=== PATIENT | female | born 1995 | race Caucasian/White ===

== ENCOUNTER → 2017-04-21 | Outpatient (CLI) | payer BC ==
[~2017-04-21] MED LIST: IBUP-1050 PO; NORE-24 PO; REVIEWED
--- NOTE | 2017-04-21 16:16 | MAMMOGRAPHY REPORT ---
ULTRASOUND OF RIGHT BREAST: 04/21/2017 CLINICAL HISTORY: 21-year-old woman presents with a history of right breast pain over the past month. It began a sharp burning pain became constant for 3-4 days but has subsided a little bit just prior to this appointment. She also possibly feels a small lump near the area of pain. No skin changes o r nipple discharge. No family history of breast cancer. COMPARISON: No prior exams were available for comparison. FINDINGS: Real-time high-resolution grayscale ultrasound was performed throughout the area of pain p ointed out by the patient (8:00 through 10:00 axes of the right breast from the periareolar region th rough 6 cm from the nipple). The patient also reported a possible small lump in the 10:00 axis when she pinched the area between her thumb and fingers. I was unable to palpate a lump. Throughout the area of pain, there is no evidence of a suspicious solid or cystic mass. Sonographically normal theresa st tissue is seen. IMPRESSION: ACR BI-RADS CATEGORY 1: NEGATIVE There is no sonographic evidence of malignancy, or other suspicious abnormality to explain the right lateral mastalgia and palpable lump. Therefore, clinical follow-up is recommended, as biopsy of a cl inically suspicious mass should not be precluded by negative imaging. These results and recommendations were discussed with the patient at the time of the exam. Leidy Coe M.D. ay/:04/21/2017 12:37:36 Informatics Physician: Cheryl PALMER)[place]), [facility] letter sent: Normal 1/2 BI-RADS Code: ACR BI-RADS Category 1: Negative
== END | disposition home or self-care (01) ==
LOC: C.MAMM 10:35
PROVIDERS: ATTEND Physician Assistant
DX: N63 Unspecified lump in breast (principal)

== ENCOUNTER 2018-02-13 19:05 | Emergency (ER) | payer BC, OTHER ==
[~2018-02-13] VITALS: Ht 162.6 cm; Wt 96.2 kg
[~2018-02-13 19:05] MED LIST changes: +NORE-104 PO; -NORE-24 PO
[2018-02-13 19:08] VITALS: TEMP 36.8; Ht 162.6 cm; Wt 96.2 kg
[2018-02-13] MEDS ORDERED: KETOROLAC TROMETHAMINE 30 MG/ML VIAL IV STA (19:20)
[2018-02-13] MEDS ORDERED: ONDANSETRON INJ 2 MG/ML 2 ML VIAL IV STA (19:20)
--- NOTE | 2018-02-13 19:23 | EMERGENCY ROOM VISIT NOTE ---
History Report prepared by Jena: Deonte Li Under the Supervision of: Dr. Curt Christiansen M.D. First contact with patient: 19:11 Chief Complaint: ABDOMINAL PAIN Stated Complaint: VOMITING,R UPPER QUADRANT PAIN INTO BACK History of Present Illness The patient is a 22 year old female who presents to the Emergency Room with complaints of constant abdominal pain beginning today. The patient states that she initially developed nausea and abdominal pain today and has been dry heaving. She notes that she then started vomiting 4 times about 3 hours ago and noticed that there may have dark colored vomit. She reports that her abdominal pain radiates into her back. No hematemesis, coffee-ground emesis, pain with urination, vaginal discharge/bleeding, melena, and blood in her stool. The patient states that there was a little bit of blood when she last went to the bathroom, but notes that she just had her period. She reports that there is no chance that she is . The family member and the patient state they are concerned that the patient might have gallstones as her brother, mother, and father have all had to have their gallbladder removed. Source of History: patient Onset: today Position: abdomen Timing: constant Associated Symptoms: + SOB, + nausea, + vomiting, + back pain Note: The patient states that there might have been dark red coloring in her vomiting. She denies any pain with urination, vaginal discharge/bleeding, and blood in her stool. Review of Systems See HPI for pertinent positives and negatives. A total of ten systems were reviewed and were otherwise negative. Past Medical & Surgical Medical Problems: (1) No chronic problems Family History Cholecystectomy Social History Smoking Status: Never Smoker Marital Status: Housing Status: lives with family Occupation Status: employed Current/Historical Medications Scheduled Ethinyl Estradiol/Norethindr (Microgestin 1.5MG/30MG), 1 TAB PO HS Magnesium (Magnesium), 1 TAB PO HS Pantoprazole (Protonix), 20 MG PO HS Riboflavin (Riboflavin), 1 TAB PO HS Scheduled PRN Ibuprofen (Advil), 200-800 MG PO DIRECTED PRN for Pain Ondansetron Hcl (Zofran), 4 MG PO Q8H PRN for Nausea Allergies Coded Allergies: Venlafaxine (Verified Allergy, Severe, "STROKE-LIKE SYMPTOMS,NUMBNESS ON HALF OF BODY THEN FAINTED", 02/13/18) Adhesives (Verified Allergy, Intermediate, RASH, REDNESS, IRRITATED SKIN, 02/13/18) Latex (Verified Adverse Reaction, Intermediate, ITCHY, REDDENED IRRITATED SKIN, 02/13/18) Physical Exam Vital Signs Date Time Temp Pulse Resp B/P (MAP) Pulse Ox O2 Delivery O2 Flow Rate FiO2 02/13/18 21:06 106 16 123/87 96 Room Air 02/13/18 19:08 36.8 118 20 159/100 99 Room Air Physical Exam Physical Exam GENERAL: She is oriented to person, place, and time. She appears well- developed and well-nourished. She does not appear distressed. HENT: Exam performed. Head: Normocephalic and atraumatic. Right Ear: External ear normal. No mastoid tenderness. Left Ear: External ear normal. No mastoid tenderness. Mouth/Throat: The oropharynx is clear and moist. No trismus in the jaw. No dental abscesses or uvula swelling. No oropharyngeal exudate or tonsillar abscesses. EYES: Conjunctivae and EOM are normal. Pupils are equal, round, and reactive to light. Right eye exhibits no discharge. Left eye exhibits no discharge. No scleral icterus. NECK: Normal range of motion. Neck supple. No JVD present. No spinous process tenderness present. No carotid bruit present. No rigidity. No tracheal deviation and normal range of motion present. No Brudzinski's sign and no Kernig 's sign noted. CV: Normal rate, regular rhythm, normal heart sounds and intact distal pulses. There is no peripheral edema. Palpable radial pulses bue. PULM/CHEST: Effort normal and breath sounds normal. No respiratory distress. No stridor. She has no wheezes. She has no rales. Chest Wall: She exhibits no tenderness. ABD: The abdomen is soft. Bowel sounds are normal. She has no distension. No mass is present. There is no rebound, no guarding, no Brown's sign and no tenderness at McBurney's point. Rovsig negative. Pain to palpation of the RUQ and epigastric area. MUSC/SKEL: Normal range of motion. There is no peripheral edema, tenderness or deformity. LYMPH: No cervical adenopathy. NEURO: She is alert and oriented to person, place, and time. She has normal strength. No cranial nerve deficit or sensory deficit. Coordination and gait normal. GCS eye subscore is 4. GCS verbal subscore is 5. GCS motor subscore is 6. Cerebellar tests wnl. SKIN: Skin is warm and dry. She is not diaphoretic. PSYCH: She has a normal mood and affect. Her behavior is normal. Judgment and thought content normal. Medical Decision & Procedures ER Provider Diagnostic Interpretation: Radiology results as stated below per my review and radiologist interpretation: ULTRASOUND RIGHT UPPER QUADRANT ABDOMEN FINDINGS: Liver: The liver is top normal in size and demonstrates heterogeneously increased echotexture consistent with hepatic steatosis. There is no intrahepatic biliary ductal dilatation. The main portal vein is patent. Gallbladder: The gallbladder is normal in appearance. No gallstones are identified. There is no gallbladder wall thickening or pericholecystic fluid. A sonographic Brown's sign is reportedly absent. The common bile duct measures up to 0.3 cm in diameter. Pancreas: Visualized portions of the pancreatic head and body are normal in appearance. The splenic vein is patent. Right kidney: Survey images of the right kidney demonstrate normal size and echotexture. There is no hydronephrosis. Ascites: None. IMPRESSION: 1. No acute sonographic abnormality is identified in the right upper quadrant. No gallstones are identified. 2. Hepatic steatosis. Electronically signed by: Tesfaye Bishop M.D. 02/13/2018 8:46 PM PA CHEST WITH ABDOMINAL SERIES FINDINGS: A PA chest radiograph is compared to study dated 11/03/2012. The cardiomediastinal silhouette is unremarkable. The lungs and pleural spaces are clear. No pneumothorax is seen. The bony thorax is grossly intact. Supine and erect abdominal radiographs are compared to study dated 09/12/2014. There is a nonobstructed abdominal bowel gas pattern. No evidence of intraperitoneal free air is seen. Mild colonic fecal retention is noted. There are no abnormal abdominal calcifications. A tiny phlebolith is noted in the right hemipelvis. The lumbosacral spine and bony pelvis appear intact. IMPRESSION: 1. No active disease in the chest. 2. Nonobstructed abdominal bowel gas pattern. Electronically signed by: Tesfaye Bishop M.D. 02/13/2018 8:57 PM Laboratory Results 02/13/18 19:35 Red Blood Count 4.84, Mean Corpuscular Volume 89.5, Mean Corpuscular Hemoglobin 31.0, Mean Corpuscular Hemoglobin Concent 34.6, Mean Platelet Volume 9.3, Neutrophils (%) (Auto) 85.0, Lymphocytes (%) (Auto) 9.5, Monocytes (%) (Auto) 3.7, Eosinophils (%) (Auto) 1.2, Basophils (%) (Auto) 0.3, Neutrophils # (Auto) 9.92, Lymphocytes # (Auto) 1.11, Monocytes # (Auto) 0.43, Eosinophils # (Auto) 0.14, Basophils # (Auto) 0.03 02/13/18 19:35 Test 02/13/18 19:35 02/13/18 19:57 White Blood Count 11.66 K/uL (4.8-10.8) Red Blood Count 4.84 M/uL (4.2-5.4) Hemoglobin 15.0 g/dL (12.0-16.0) Hematocrit 43.3 % (37-47) Mean Corpuscular Volume 89.5 fL (80-100) Mean Corpuscular Hemoglobin 31.0 pg (25-34) Mean Corpuscular Hemoglobin Concent 34.6 g/dl (32-36) Platelet Count 376 K/uL (130-400) Mean Platelet Volume 9.3 fL (7.4-10.4) Neutrophils (%) (Auto) 85.0 % Lymphocytes (%) (Auto) 9.5 % Monocytes (%) (Auto) 3.7 % Eosinophils (%) (Auto) 1.2 % Basophils (%) (Auto) 0.3 % Neutrophils # (Auto) 9.92 K/uL (1.4-6.5) Lymphocytes # (Auto) 1.11 K/uL (1.2-3.4) Monocytes # (Auto) 0.43 K/uL (0.11-0.59) Eosinophils # (Auto) 0.14 K/uL (0-0.5) Basophils # (Auto) 0.03 K/uL (0-0.2) RDW Standard Deviation 41.4 fL (36.4-46.3) RDW Coefficient of Variation 12.7 % (11.5-14.5) Immature Granulocyte % (Auto) 0.3 % Immature Granulocyte # (Auto) 0.03 K/uL (0.00-0.02) Anion Gap 6.0 mmol/L (3-11) Est Creatinine Clear Calc Drug Dose 97.7 ml/min Estimated GFR () 91.3 Estimated GFR (Non- 78.8 BUN/Creatinine Ratio 13.7 (10-20) Calcium Level 9.2 mg/dl (8.5-10.1) Total Bilirubin 0.9 mg/dl (0.2-1) Direct Bilirubin 0.2 mg/dl (0-0.2) Aspartate Amino Transf (AST/SGOT) 17 U/L (15-37) Alanine Aminotransferase (ALT/SGPT) 30 U/L (12-78) Alkaline Phosphatase 81 U/L (45-117) Total Protein 8.8 gm/dl (6.4-8.2) Albumin 3.9 gm/dl (3.4-5.0) Lipase 122 U/L (73-393) Urine Color DK YELLOW Urine Appearance CLEAR (CLEAR) Urine pH 7.0 (4.5-7.5) Urine Specific [place] 1.025 (1.000-1.030) Urine Protein TRACE (NEG) Urine Glucose (UA) NEG (NEG) Urine Ketones 3+ (NEG) Urine Occult Blood NEG (NEG) Urine Nitrite NEG (NEG) Urine Bilirubin NEG (NEG) Urine Urobilinogen NEG (NEG) Urine Leukocyte Esterase NEG (NEG) Urine WBC (Auto) 5-10 /hpf (0-5) Urine RBC (Auto) 0-4 /hpf (0-4) Urine Hyaline Casts (Auto) 1-5 /lpf (0-5) Urine Epithelial Cells (Auto) >30 /lpf (0-5) Urine Bacteria (Auto) NEG (NEG) Urine Test NEG (NEG) Laboratory results reviewed by me Medications Administered Medications (Trade) Dose Ordered Sig/Cyrus Route Start Time Stop Time Status Last Admin Dose Admin Ondansetron HCl (Zofran Inj) 4 mg NOW STAT IV 02/13/18 19:20 02/13/18 19:22 DC 02/13/18 19:51 4 MG Ketorolac Tromethamine (Toradol Inj) 15 mg NOW STAT IV 02/13/18 19:20 02/13/18 19:22 DC 02/13/18 19:50 15 MG ED Course 1714: The patient was evaluated in room B6. A complete history and physical exam was performed. 0: Toradol Inj 15mg IV, Zofran Inj 4mg IV 2103: I reevaluated and updated the patient. Her labs and imaging are wnl. There is no evidence of cholecystitis. She will be discharged with prescription Zofran. DISCHARGE - Plan of care discussed with patient and questions answered. The patient was given both verbal and printed discharge instructions. The patient verbalized understanding and ability to comply. The patient is to seek outpatient follow up as noted in the discharge instructions. The patient verbalized understanding and ability to comply. The patient is discharged in stable condition. The patient was instructed to return for worsening symptoms. Medical Decision I reevaluated and updated the patient. Her labs and imaging are wnl. There is no evidence of cholecystitis. She will be discharged with prescription Zofran. DISCHARGE - Plan of care discussed with patient and questions answered. The patient was given both verbal and printed discharge instructions. The patient verbalized understanding and ability to comply. The patient is to seek outpatient follow up as noted in the discharge instructions. The patient verbalized understanding and ability to comply. The patient is discharged in stable condition. The patient was instructed to return for worsening symptoms. Medication Reconcilliation Current Medication List: was personally reviewed by me Blood Pressure Screening Patient's blood pressure: Normal blood pressure Blood pressure disposition: Did not require urgent referral Impression Primary Impression: Abdominal pain Scribe Attestation The scribe's documentation has been prepared under my direction and personally reviewed by me in its entirety. I confirm that the note above accurately reflects all work, treatment, procedures, and medical decision making performed by me. The chart was completed utilizing [employer] Speech voice recognition software. Grammatical errors, random word insertions, pronoun errors, and incomplete sentences are an occasional consequence of this system due to software limitations, ambient noise, and hardware issues. Any formal questions or concerns about the content, text, or information contained within the body of this dictation should be directly addressed to the physician for clarification. Departure Information Dispostion Home / Self-Care Prescriptions Ondansetron Hcl (ZOFRAN) 4 Mg Tab 4 MG PO Q8H Y for Nausea, #30 TAB Prov: Curt Christiansen M.D. 02/13/18 Referrals Oesterling, Maurisio,M.D. (PCP) Forms HOME CARE DOCUMENTATION FORM, IMPORTANT VISIT INFORMATION Patient Instructions [facility] Problem Qualifiers Primary Impression: Abdominal pain Abdominal location: right upper quadrant Qualified Codes: R10.11 - Right upper quadrant pain
[2018-02-13] MEDS ORDERED: MAGN250T9 PO (19:36)
[2018-02-13] MEDS ORDERED: RIBO1TAB4 PO (19:36)
[2018-02-13] MEDS ORDERED: PRT/20 PO (19:36)
[2018-02-13 19:46] LABS: BASO % 0.3 %; BASO ABS # 0.03 K/uL (0-0.2); EOS % 1.2 %; EOS ABS # 0.14 K/uL (0-0.5); HEMATOCRIT 43.3 % (37-47); IG# 0.03 K/uL (0.00-0.02); LYMPH % 9.5 %; LYMPH ABS # 1.11 K/uL (1.2-3.4); MEAN CELL VOLUME 89.5 fL (80-100); MEAN CORPUSCULAR HGB CONC 34.6 g/dl (32-36); MEAN PLATELET VOLUME 9.3 fL (7.4-10.4); MONO % 3.7 %; MONO ABS # 0.43 K/uL (0.11-0.59); NEUT ABS # 9.92 K/uL (1.4-6.5); PLATELET COUNT 376 K/uL (130-400); RED CELL DISTRIBUTION WIDTH CV 12.7 % (11.5-14.5); RED CELL DISTRIBUTION WIDTH SD 41.4 fL (36.4-46.3); WHITE BLOOD COUNT 11.66 K/uL (4.8-10.8)
[2018-02-13 20:03] LABS: ALBUMIN 3.9 gm/dl (3.4-5.0); CALCIUM 9.2 mg/dl (8.5-10.1); POTASSIUM 3.8 mmol/L (3.5-5.1)
[2018-02-13 20:06] LABS: TOTAL PROTEIN 8.8 gm/dl (6.4-8.2)
--- NOTE | 2018-02-13 20:47 | DIAGNOSTIC IMAGING REPORT ---
ULTRASOUND RIGHT UPPER QUADRANT ABDOMEN CLINICAL HISTORY: Right upper quadrant abdominal pain. COMPARISON STUDY: Abdominal CT dated 09/04/2014. TECHNIQUE: Real-time, grayscale, and color flow sonography of the right upper quadrant of the abdomen was performed. Images are reviewed in the transverse and longitudinal planes. FINDINGS: Liver: The liver is top normal in size and demonstrates heterogeneously increased echotexture consistent with hepatic steatosis. There is no intrahepatic biliary ductal dilatation. The main portal vein is patent. Gallbladder: The gallbladder is normal in appearance. No gallstones are identified. There is no gallbladder wall thickening or pericholecystic fluid. A sonographic Brown's sign is reportedly absent. The common bile duct measures up to 0.3 cm in diameter. Pancreas: Visualized portions of the pancreatic head and body are normal in appearance. The splenic vein is patent. Right kidney: Survey images of the right kidney demonstrate normal size and echotexture. There is no hydronephrosis. Ascites: None. IMPRESSION: 1. No acute sonographic abnormality is identified in the right upper quadrant. No gallstones are identified. 2. Hepatic steatosis. Electronically signed by: Tesfaye Bishop M.D. 02/13/2018 8:46 PM Dictated Date/Time: 02/13/2018 8:45 PM
--- NOTE | 2018-02-13 20:59 | DIAGNOSTIC IMAGING REPORT ---
PA CHEST WITH ABDOMINAL SERIES CLINICAL HISTORY: Epigastric abdominal pain FINDINGS: A PA chest radiograph is compared to study dated 11/03/2012. The cardiomediastinal silhouette is unremarkable. The lungs and pleural spaces are clear. No pneumothorax is seen. The bony thorax is grossly intact. Supine and erect abdominal radiographs are compared to study dated 09/12/2014. There is a nonobstructed abdominal bowel gas pattern. No evidence of intraperitoneal free air is seen. Mild colonic fecal retention is noted. There are no abnormal abdominal calcifications. A tiny phlebolith is noted in the right hemipelvis. The lumbosacral spine and bony pelvis appear intact. IMPRESSION: 1. No active disease in the chest. 2. Nonobstructed abdominal bowel gas pattern. Electronically signed by: Tesfaye Bishop M.D. 02/13/2018 8:57 PM Dictated Date/Time: 02/13/2018 8:56 PM
[2018-02-13] MEDS ORDERED: ONDA4TAB46 PO (21:05)
[2018-02-13 21:06] VITALS: BP 123/87; PULSE 106; O2SAT 96
== END 2018-02-13 21:18 | disposition home or self-care (01) ==
LOC: C.EDB 19:07
DX: R10.11 Right upper quadrant pain (principal); R10.13 Epigastric pain; Z79.3 Long term (current) use of hormonal contraceptives; Z88.8 Allergy status to other drugs, medicaments and biological substances; Z91.048 Other nonmedicinal substance allergy status; Z91.040 Latex allergy status